=== PATIENT | female | born 1995 | race Caucasian/White ===

== ENCOUNTER 2016-11-16 21:08 | Emergency (ER) | payer BC ==
[~2016-11-16] VITALS: Ht 154.9 cm; Wt 82.0 kg
[~2016-11-16 21:08] MED LIST: AZIT500T2 PO; IBUP800T23 PO; RANI150T PO
[2016-11-16 21:10] VITALS: BP 153/90; PULSE 97; RESP 16; TEMP 98.8; O2SAT 98
[2016-11-16 22:22] VITALS: BP 142/76; PULSE 80; RESP 18; O2SAT 98
[2016-11-16] MEDS ORDERED: diphenhydrAMINE HCL 50 MG/ML VIAL IVP ONE (22:45)
[2016-11-16] MEDS ORDERED: FAMOTIDINE 20 MG/2 ML VIAL IV PUSH ONE (22:45)
[2016-11-16] MEDS ORDERED: SODIUM CHLORIDE 0.9% FLUSH 5 ML FLUSH IVF PRN (22:45)
[2016-11-16] MEDS ORDERED: methylPREDNISolone SOD SUCC 125 MG/2 ML VIAL IVP ONE (22:45)
[2016-11-17] MEDS ORDERED: SODIUM CHLORIDE 0.9% FLUSH 5 ML FLUSH IVF PRN (00:15)
[2016-11-17] MEDS ORDERED: EPINEPHrine HCL (1:1000) 1 MG/ML VIAL IM ONE (00:15)
--- NOTE | 2016-11-17 00:19 | PD ---
HPI Chief Complaint: Allergic/Adverse Reaction Time Seen by Provider: 22:44 Travel History International Travel<30 days: No Contact w/Intl Traveler<30days: No Traveled to known affect area: No History of Present Illness HPI 21 year-old female presents to the emergency department by private transportation the care of her significant other for allergic reaction. Patient is noted upper lip and facial swelling as well as left sided tongue swelling. Patient denies any difficulty with swallowing or breathing. Patient denies any chest pain or wheezing. Patient's had no near-syncope or syncope. No nausea no vomiting no diarrhea or abdominal cramping. Patient denies urticaria or skin rash. Patient states symptoms began around 6 PM after drinking a new peach flavored beverage around 5:30 PM. Patient states since that time around 7:30 she did take a one-time dose of Benadryl but symptoms were not improving, decided to come to the emergency room. Patient denies any prior allergic reaction to foods or other substances or known allergens. She has had an adverse reaction to codeine causing GI upset but no true allergy. Patient denies any other new foods beverages makeup lip gloss detergents lotions between linens furniture pet dander or plant exposure or other allergens. Patient rates mouth discomfort as 5/10 intensity. Patient denies any chronic medical conditions besides asthma which does not appear to be affected. LMP: 2 weeks ago and normal for her. PFS Past Medical History Narrative Medical asthma, no tobacco; nursing notes reviewed Cardiovascular Problems: Yes (MURMUR) Diminished Hearing: No Respiratory: Yes (ASTHMA) Immunizations Current: Yes Tetanus Vaccination: Unknown ?: Not LMP: 2 WKS AGO Past Surgical History Abdominal Surgery: Yes (EX LAP) Social History Alcohol Use: Yes (OCCASIONALLY) Tobacco Use: No Substance Use: No Allergies-Medications (Allergen,Severity, Reaction): Coded Allergies: Codeine (Verified Adverse Reaction, Mild, upset stomach, 11/16/16) Reported Meds & Prescriptions Reported Meds & Active Scripts Active Epipen 2-Jose R Inj (Epinephrine) 0.3 Mg/0.3 Ml Pfpen 0.3 Mg IM ONCE PRN Prednisone 50 Mg Tab 50 Mg PO DAILY 4 Days Review of Systems Except as stated in HPI: all other systems reviewed are Neg General / Constitutional: No: Fever, Chills Eyes: No: Visual changes HENT: No: Headaches, Sore Throat, Congestion Cardiovascular: No: Chest Pain or Discomfort, Diaphoresis, Syncope Respiratory: No: Cough, Shortness of Breath, Wheezing, Pleuritic Pain Gastrointestinal: No: Nausea, Vomiting, Diarrhea, Abdominal Pain Genitourinary: No: Dysuria, Flank Pain Musculoskeletal: No: Myalgias, Arthralgias Skin: No Rash, No Hives Psychiatric: Positive: Anxiety Endocrine: No: Heat Intolerance Hematologic/Lymphatic: No: Easy Bruising Physical Exam Narrative GENERAL: Well-developed well-nourished female in no acute distress no respiratory distress no stridor or hoarseness. SKIN: Warm and dry. No rash no urticaria. HEAD: Normocephalic. EYES: No scleral icterus. No injection or drainage. ENT: Airway is patent; no visible tongue edema; right side of upper lip with focal area of edema. NECK: Supple, trachea midline. No JVD or lymphadenopathy. CARDIOVASCULAR: Regular rate and rhythm without murmurs, gallops, or rubs. RESPIRATORY: Breath sounds equal bilaterally. No accessory muscle use. GASTROINTESTINAL: Abdomen soft, non-tender, nondistended. MUSCULOSKELETAL: No cyanosis, or edema. BACK: Nontender without obvious deformity. No CVA tenderness. Data Data Last Documented VS Vital Signs Date Time Temp Pulse Resp B/P Pulse Ox O2 Delivery O2 Flow Rate FiO2 11/17/16 01:11 82 18 135/61 97 11/16/16 22:22 Room Air 11/16/16 21:10 98.8 Orders Ecg Monitoring (11/16/16 22:45) Iv Access Insert/Monitor (11/16/16 22:45) Oximetry (11/16/16 22:45) Diphenhydramine Inj (Benadryl Inj) (11/16/16 22:45) Methylprednisolone So Succ Inj (Solumedr (11/16/16 22:45) Famotidine Inj (Pepcid Inj) (11/16/16 22:45) Sodium Chloride 0.9% Flush (Ns Flush) (11/16/16 22:45) Sodium Chloride 0.9% Flush (Ns Flush) (11/17/16 00:15) Epinephrine (1:1000) Inj (Adrenalin (1:1 (11/17/16 00:15) MDM Medical Decision Making Medical Screen Exam Complete: Yes Emergency Medical Condition: Yes Medical Record Reviewed: Yes Differential Diagnosis Acute allergic reaction, angioedema, anaphylaxis Narrative Course Patient placed on threat monitoring analyst IV access obtained Solu-Medrol 125 mg IV administered Benadryl 25 mg IV administered and Pepcid 20 mg IV administered Patient reassessed and patient denies any sensation of tongue swelling continues to have persistent right-sided upper lip swelling epinephrine 1:1000 0.3 cc administered IM At 12:53 AM patient is clinically improved and stable for outpatient management Diagnosis Primary Impression: Acute allergic reaction Qualified Code: T78.40XA - Acute allergic reaction, initial encounter Referrals: Primary Care Physician call for appointment Patient Instructions: General Instructions Departure Forms: Tests/Procedures, Work Release Special Instructions: No work times one day Additional Instructions: Increase fluid hydration; avoid ingredients in the beach beverage and avoid the beach beverage from earlier this evening as possible allergen Avoid overheating Take [id number] Pepcid per package directions daily for 7 days Take Benadryl 25-50 mg as often as every 4-6 hours as needed for allergic reaction symptoms Complete course of prednisone/steroid as prescribed Use EpiPen as prescribed as needed No work times one day Return to the emergency department for any concerns or change in condition Med/Other Pt SpecificInfo: Prescription(s) given Scripts Epinephrine Inj (Epipen 2-Jose R Inj)0.3 Mg/0.3 Ml Pfpen0.3 Mg IM ONCE PRN ( ALLERGIC REACTION) #1 PACK Ref 1 Prov:Hilda Lee MD 11/17/16 Prednisone 50 Mg Tab50 Mg PO DAILY 4 Days Ref 0 Prov:Hilda Lee MD 11/17/16 Disposition: DISCHARGE HOME Condition: Stable Hilda Lee MD Nov 17, 2016 00:19
[2016-11-17] MEDS ORDERED: EPIP0.3I IM (00:52)
[2016-11-17] MEDS ORDERED: PRED50 PO (00:52)
[2016-11-17 01:11] VITALS: BP 135/61
== END 2016-11-17 01:14 | disposition home or self-care (01) ==
LOC: NEPC 21:08
DX: T78.40XA Allergy, unspecified, initial encounter (principal); Z87.09 Personal history of other diseases of the respiratory system; Z86.79 Personal history of other diseases of the circulatory system
CPT/HCPCS: 96372; 96374; 96375; 99283; J0171; J1200; J2930

== ENCOUNTER 2017-03-10 12:30 | Emergency (ER) | payer SELFPAY ==
[~2017-03-10] VITALS: Ht 154.9 cm; Wt 80.0 kg
[~2017-03-10 12:30] MED LIST changes: -AZIT500T2 PO; +EPIP0.3I IM; -IBUP800T23 PO; +PRED50 PO; -RANI150T PO
[2017-03-10 12:32] VITALS: BP 137/82; PULSE 102; RESP 20; TEMP 98.3; O2SAT 100
[2017-03-10] MEDS ORDERED: predniSONE 50 MG TAB PO ONE (12:45)
--- NOTE | 2017-03-10 12:47 | PD ---
HPI Chief Complaint: Cold / Flu Symptoms Time Seen by Provider: 12:39 Travel History International Travel<30 days: No Contact w/Intl Traveler<30days: No Traveled to known affect area: No History of Present Illness HPI This is a 22-year-old female who presents to the emergency department with difficulty breathing for 2 days, constant, moderate severity feeling tightness in her right chest, with a nonproductive cough and some discomfort in her right neck and throat area. She says she's felt very hot hasn't checked her temperature. She denies any vomiting or diarrhea. She denies any sore throat or rhinorrhea. PFSH Past Medical History Cardiovascular Problems: Yes (MURMUR) Diminished Hearing: No Respiratory: Yes (ASTHMA) Immunizations Current: Yes ?: Not Past Surgical History Abdominal Surgery: Yes (EX LAP) Social History Alcohol Use: Yes (OCCASIONALLY) Tobacco Use: No Substance Use: No Allergies-Medications (Allergen,Severity, Reaction): Coded Allergies: Codeine (Verified Adverse Reaction, Mild, upset stomach, 11/16/16) Reported Meds & Prescriptions Reported Meds & Active Scripts Active Epipen 2-Jose R Inj (Epinephrine) 0.3 Mg/0.3 Ml Pfpen 0.3 Mg IM ONCE PRN Prednisone 50 Mg Tab 50 Mg PO DAILY 4 Days Review of Systems Except as stated in HPI: all other systems reviewed are Neg Physical Exam Narrative GENERAL:Well appearing, no acute distress SKIN: Focused skin assessment warm and dry. HEAD: Atraumatic. Normocephalic. EYES: Pupils equal and round. No injection or drainage. ENT: Moist mucous membranes. No posterior pharyngeal erythema or exudates. NECK: Trachea midline. No cervical lymphadenopathy. CARDIOVASCULAR: Regular rate and rhythm. No murmur appreciated. RESPIRATORY: Wheezing in the right upper lung and some Rales in the right lower lung, patient is slightly tachypneic GASTROINTESTINAL: Abdomen soft, non-tender, nondistended. MUSCULOSKELETAL: No obvious deformities. NEUROLOGICAL: Awake and alert. No obvious cranial nerve deficits. Moving all extremities. PSYCHIATRIC: Appropriate mood and affect; insight and judgment normal. Data Data Last Documented VS Vital Signs Date Time Temp Pulse Resp B/P Pulse Ox O2 Delivery O2 Flow Rate FiO2 03/10/17 12:32 98.3 102 20 137/82 100 Room Air Orders Chest, Pa & Lat (03/10/17 ) Prednisone (Deltasone) (03/10/17 12:45) Albuterol-Ipratropium Neb (Duoneb Neb) (03/10/17 12:45) Complete Blood Count With Diff (03/10/17 14:18) Comprehensive Metabolic Panel (03/10/17 14:18) Ct Pulmonary Angiogram (03/10/17 ) Ed Urine Pregnancytest Poc (03/10/17 14:18) Lorazepam (Ativan) (03/10/17 14:45) Iohexol 350 Inj (Omnipaque 350 Inj) (03/10/17 14:57) Labs Laboratory Tests Test 03/10/17 14:28 White Blood Count 11.7 TH/MM3 Red Blood Count 5.03 MIL/MM3 Hemoglobin 13.4 GM/DL Hematocrit 40.8 % Mean Corpuscular Volume 81.2 FL Mean Corpuscular Hemoglobin 26.7 PG Mean Corpuscular Hemoglobin 32.9 % Concent Red Cell Distribution Width 13.9 % Platelet Count 247 TH/MM3 Mean Platelet Volume 8.8 FL Neutrophils (%) (Auto) 81.2 % Lymphocytes (%) (Auto) 11.5 % Monocytes (%) (Auto) 6.1 % Eosinophils (%) (Auto) 0.8 % Basophils (%) (Auto) 0.4 % Neutrophils # (Auto) 9.5 TH/MM3 Lymphocytes # (Auto) 1.3 TH/MM3 Monocytes # (Auto) 0.7 TH/MM3 Eosinophils # (Auto) 0.1 TH/MM3 Basophils # (Auto) 0.0 TH/MM3 CBC Comment DIFF FINAL Differential Comment MDM Medical Decision Making Medical Screen Exam Complete: Yes Emergency Medical Condition: Yes Interpretation(s) Afebrile, mild tachycardia, normotensive Mild leukocytosis 81% neutrophils Last 24 hours Impressions Chest X-Ray 03/10/17 0000 Signed Impressions: Service Date/Time: Friday, March 10, 2017 13:52 - CONCLUSION: Moderate peribronchial thickening without consolidation. Tigre Frank MD FACR CT Angiography 03/10/17 0000 Signed Impressions: Service Date/Time: Friday, March 10, 2017 14:45 - CONCLUSION: 1. No pulmonary embolus identified. 2. Right lower lobe pneumonia. Rogelio Frank MD Differential Diagnosis Pneumonia, pulmonary embolism, bronchitis, pneumothorax Narrative Course This is a 22-year-old female who presents to the emergency department with shortness of breath and cough. She is objectively tachypneic on exam although has a normal oxygen saturation. She has pain in the right lung. She was placed on a monitor and an IV was established. Labs demonstrate a mild leukocytosis. Chest x-ray demonstrated some peribronchial cuffing. I obtained a CT pulmonary angiogram to evaluate for pulmonary embolism versus pneumonia. Patient has evidence of a right lower lobe pneumonia. She will be treated here with a dose of ceftriaxone and azithromycin and will be discharged on Cefdinir and azithromycin as an outpatient, as well as bronchodilators. Diagnosis Primary Impression: Pneumonia Qualified Code: J18.1 - Pneumonia of right lower lobe due to infectious organism Patient Instructions: General Instructions Additional Instructions: If you develop severe shortness of breath, chest pain, or difficulty breathing return to the emergency department. Use albuterol every 4 hours for the next 2 days. Then use as needed for wheezing. Complete your course of steroids. Complete your course of antibiotics. Follow up with your primary care physician in 2-3 days if your symptoms have not improved. Med/Other Pt SpecificInfo: Prescription(s) given Scripts Albuterol 8.5 GM Inh (Proair Hfa 8.5 GM Inh)90 Mcg/Act Aer2 Puff INH Q6H PRN ( SHORTNESS OF BREATH) #1 INHALER Ref 0 108 mcg/actuation Prov:Rachel Osborne MD 03/10/17 Azithromycin (Zithromax Z-Jose R)250 Mg [id number] Mg PO DIRECTED #1 DSPK Ref 0 500 MG (2 tabs) day 1, then 1 tab days 2-5. Prov:Rachel Osborne MD 03/10/17 Cefdinir 300 Mg [id number] Mg PO BID 10 Days Ref 0 Prov:Rachel Osborne MD 03/10/17 Prednisone 20 Mg Tab40 Mg PO DAILY 4 Days Prov:Rachel Osborne MD 03/10/17 Disposition: 01 DISCHARGE HOME Condition: Stable Rachel Osborne MD Mar 10, 2017 12:47
[2017-03-10] MEDS: RESP: ALBUTEROL 2.5 MG/IPRATROPIUM 0.5 MG NEB (SCH) INH ×2 (13:02→13:03)
--- NOTE | 2017-03-10 14:10 | RADRPT ---
EXAM DATE/TIME: 03/10/2017 13:52 [facility] COMPARISON: No previous studies available for comparison. INDICATIONS : Shortness of breath and right side pain. MEDICAL HISTORY : Asthma SURGICAL HISTORY : ENCOUNTER: Initial ACUITY: 3 days PAIN SCORE: 5/10 LOCATION: Right chest FINDINGS: Moderate peribronchial thickening is present without pneumothorax. The heart and pulmonary vasculari ty are normal. The portion of the bony skeleton visualized is unremarkable. CONCLUSION: Moderate peribronchial thickening without consolidation. Tigre Frank MD FACR on March 10, 2017 at 14:08 Board Certified Radiologist. This report was verified electronically.
[2017-03-10] MEDS ORDERED: LORazepam 0.5 MG TAB PO ONE (14:45)
[2017-03-10] MEDS ORDERED: IOHEXOL 350 MG/ML 10 ML VIAL (for RAD DIAG) IV ONE (14:57)
[2017-03-10 15:02] LABS: AUTOMATED NEUTROPHIL # 9.5 TH/MM3 (1.8-7.7); BASOPHIL % 0.4 % (0.0-2.0); EOSINOPHIL # 0.1 TH/MM3 (0-0.4); EOSINOPHIL % 0.8 % (0.0-4.0); HEMATOCRIT 40.8 % (35.0-46.0); HEMO FLAGS DIFF FINAL; LYMPH % 11.5 % (9.0-44.0); LYMPHOCYTE # 1.3 TH/MM3 (1.0-4.8); MEAN CELL VOLUME 81.2 FL (80.0-100.0); MEAN CORPUSCULAR HEMOGLOBIN 26.7 PG (27.0-34.0); MEAN CORPUSCULAR HGB CONC 32.9 % (32.0-36.0); MONO % 6.1 % (0.0-8.0); NEUT % 81.2 % (16.0-70.0); PLATELET COUNT 247 TH/MM3 (150-450); RED BLOOD COUNT 5.03 MIL/MM3 (4.00-5.30); RED CELL DISTRIBUTION WIDTH 13.9 % (11.6-17.2); WHITE BLOOD COUNT 11.7 TH/MM3 (4.0-11.0)
--- NOTE | 2017-03-10 15:03 | RADRPT ---
EXAM DATE/TIME: 03/10/2017 14:45 [facility] COMPARISON: CHEST PA & LAT, March 10, 2017, 13:52. CT SOFT TISSUE NECK W CONTRAST, November 14, 2015, 2:44. INDICATIONS : Difficulty breathing, cough,congestion. IV CONTRAST: 69 cc Omnipaque 350 (iohexol) IV RADIATION DOSE: 23.40 CTDIvol (mGy) MEDICAL HISTORY : Cardiovascular disease. SURGICAL HISTORY : None. ENCOUNTER: Initial ACUITY: 1 day PAIN SCALE: 8/10 LOCATION: Bilateral chest TECHNIQUE: Volumetric scanning of the chest was performed using a pulmonary embolism protocol MIP images were re constructed. Using automated exposure control and adjustment of the mA and/or kV according to patien t size, radiation dose was kept as low as reasonably achievable to obtain optimal diagnostic quality images. DICOM format image data is available electronically for review and comparison. FINDINGS: PULMONARY ARTERIES: No filling defects are seen in the pulmonary arteries through the segmental level. LUNGS: The exam demonstrates diffuse parenchymal infiltrate involving the right lower lobe concerning for a pneumonia. No solid mass lesion is identified. PLEURAE: There is no pleural thickening or pleural effusion. MEDIASTINUM: There is good visualization of the great vessels of the middle mediastinum. No evidence of mediastin al or hilar adenopathy/mass. MUSCULOSKELETAL: Within normal limits for patient age. MISCELLANEOUS: The visualized upper abdominal organs demonstrate no acute abnormality. CONCLUSION: 1. No pulmonary embolus identified. 2. Right lower lobe pneumonia. Rogelio Frank MD on March 10, 2017 at 14:57 Board Certified Radiologist. This report was verified electronically.
[2017-03-10] MEDS ORDERED: CEFD300C PO (15:26)
[2017-03-10] MEDS ORDERED: ALBUAER3 INH (15:26)
[2017-03-10] MEDS ORDERED: ZITHTAB PO (15:26)
[2017-03-10] MEDS ORDERED: PRED20 PO (15:26)
[2017-03-10 15:28] LABS: ALT (GPT) 21 U/L (10-53); ANION GAP 11 MEQ/L (5-15); AST (GOT) 14 U/L (15-37); BICARBONATE 22.4 MEQ/L (21.0-32.0); BLOOD UREA NITROGEN 7 MG/DL (7-18); CHLORIDE 102 MEQ/L (98-107); GLOMERULAR FILTRATION RATE 128 ML/MIN (>89); POTASSIUM 3.4 MEQ/L (3.5-5.1); SODIUM (NA) 135 MEQ/L (136-145)
[2017-03-10 15:30] LABS: ALKALINE PHOSPHATASE 84 U/L (45-117); TOTAL BILIRUBIN ADULT 0.7 MG/DL (0.2-1.0)
== END 2017-03-10 15:45 | disposition home or self-care (01) ==
LOC: NEPD 12:30
DX: J18.1 Lobar pneumonia, unspecified organism (principal); R06.82 Tachypnea, not elsewhere classified; D72.829 Elevated white blood cell count, unspecified; M54.2 Cervicalgia; Z86.79 Personal history of other diseases of the circulatory system; Z87.09 Personal history of other diseases of the respiratory system
CPT/HCPCS: 71020; 71275; 80053; 84703; 85025; 94640; 94664; 99285; J7512; Q9967

== ENCOUNTER 2018-09-15 08:56 | Observation (INO) ==
[2018-09-15] MEDS ORDERED: guaiFENesin/Codeine Syrup 200 MG/20 MG 10 ML UDC PO ONE (09:59)
[2018-09-15] MEDS ORDERED: Dexamethasone Inj 20 MG/5 ML Vial IM ONE (09:59)
--- NOTE | 2018-09-15 10:42 | XR ---
EXAM DATE: 09/15/2018 10:25 AM EST AGE/SEX: 23 years / Female INDICATIONS: Shortness of breath. Cough. CLINICAL DATA: This is the patient's initial encounter. Patient reports that signs and symptoms have been present for 4 - 6 days and indicates a pain score of 0/10. MEDICAL/SURGICAL HISTORY: None. None. COMPARISON: [facility] [place], CHEST PA & LAT, 03/10/2017. . FINDINGS: A single AP view of the chest demonstrates the lungs to be symmetrically aerated without evidence of mass, infiltrate or effusion. The cardiomediastinal contours are unremarkable. Osseous structures a re intact. CONCLUSION: Stable chest without evidence of acute cardiopulmonary process. Electronically signed by: Devante Sparks MD Board Certified Radiologist 09/15/2018 10:41 AM EST
[2018-09-15] MEDS ORDERED: Sod Chloride 0.9% Inj 1,000 ML IV.SIG SCH (11:30)
[2018-09-15] MEDS ORDERED: Morphine Inj 4 MG/ML Vial IV.PUSH ONE (12:00)
[2018-09-15 12:21] LABS: Baso % (Auto) 0.6 % (0.0-2.0); Eos # (Auto) 0.1 th/mm3 (0.0-0.4); Eos % (Auto) 2.1 % (0.0-4.0); Hematocrit 37.1 % (35.0-46.0); Hemoglobin 11.9 gm/dL (11.6-15.3); Lymph # (Auto) 1.7 th/mm3 (1.0-4.8); Lymph % (Auto) 28.1 % (9.0-44.0); Mean Corpuscular Hemoglobin 24.2 pg (27.0-34.0); Mean Corpuscular Volume 75.7 fL (80.0-100.0); Mean Platelet Volume 8.6 fL (7.0-11.0); Mono # (Auto) 0.5 th/mm3 (0.0-0.9); Mono % (Auto) 7.9 % (0.0-8.0); Neut # (Auto) 3.7 th/mm3 (1.8-7.7); Neut % (Auto) 61.3 % (16.0-70.0); Platelet Count 228 th/mm3 (150-450); Red Blood Count 4.91 mil/mm3 (4.00-5.30); Red Cell Distribution Width 17.7 % (11.6-17.2)
[2018-09-15 12:37] LABS: Albumin 3.7 g/dL (3.4-5.0); Anion Gap 14 meq/L (5-15); Aspartate Aminotransferase 17 U/L (15-37); Blood Urea Nitrogen 8 mg/dL (7-18); Calcium 8.7 mg/dL (8.5-10.1); Carbon Dioxide 19.1 meq/L (21.0-32.0); Chloride 106 meq/L (98-107); Glomerular Filtration Rate Greater Than 89 mL/min (>89); Glucose,Random 145 mg/dL (74-106); Sodium 139 meq/L (136-145)
[2018-09-15 12:38] LABS: Alanine Aminotransferase 26 U/L (10-53)
[2018-09-15 12:41] LABS: Alkaline Phosphatase 90 U/L (45-117)
--- NOTE | 2018-09-15 13:33 | ED ---
HPI General Chief Complaint: Respiratory Symptoms Stated Complaint: SOB/resp complaint Time Seen by Provider: 09/15/18 09:48 Source: patient Mode of arrival: ambulatory Limitations: no limitations History of Present Illness HPI Narrative: 23 yo F c/o dyspnea and cough for a few days. chest pain is reported and attributed to frequent severe coughing spells. pt reports dyspnea at rest and worse with exertion. + subjective fever overnight. no hemoptysis. + hx asthma per patient. + flu shot this year. onset gradual. rhinorrhea and nasal congestion reported. no n/v/d. no abdominal sena. Related Data Home Medications Medication Instructions Recorded Confirmed No Known Home Medications 09/15/18 09/15/18 Allergies Allergy/AdvReac Type Severity Reaction Status Date / Time codeine AdvReac Mild upset Unverified 09/15/18 09:05 stomach Review of Systems ROS: all other systems reviewed are negative [facility] Social History Social History Substance History: No History of Abuse Smoking Status: Never smoker How Often Do You Have a Drink Containing Alcohol: Never Recent Travel in [facility] within the Last 8 Weeks: No Recent Out of Country Travel within the Last 8 Weeks: No Immunization History Tetanus Immunization: Unsure Exam Narrative Exam Narrative: GENERAL: 23 yo F, WNWD, anxious, speaking sentences SKIN: Focused skin assessment warm/dry. HEAD: Atraumatic. Normocephalic. EYES: Pupils equal and round. No scleral icterus. No injection or drainage. ENT: No nasal bleeding or discharge. Mucous membranes pink and moist. NECK: Trachea midline. No JVD. CARDIOVASCULAR: Tachycardia. Rate approximately 120. RESPIRATORY: Tachypnea to approx 30 breaths per minute. Minimal wheezing present bilaterally. GASTROINTESTINAL: Abdomen soft, non-tender, nondistended. Hepatic and splenic margins not palpable. MUSCULOSKELETAL: No obvious deformities. No clubbing. No cyanosis. No edema. NEUROLOGICAL: Awake and alert. No obvious cranial nerve deficits. Motor grossly within normal limits. Normal speech. PSYCHIATRIC: Cooperative. Pleasant. Anxious. Course Initial Documented Vital Signs Temperature 98.7 F 09/15/18 09:02 Pulse Rate 102 H 09/15/18 09:02 Respiratory Rate 20 09/15/18 09:02 Blood Pressure 156/76 H 09/15/18 09:02 Pulse Oximetry 100 09/15/18 09:02 Last Documented Vital Signs Temperature 98.7 F 09/15/18 09:02 Pulse Rate 112 H 09/15/18 15:30 Respiratory Rate 18 09/15/18 15:30 Blood Pressure 147/87 H 09/15/18 15:30 Pulse Oximetry 97 09/15/18 15:30 Critical Care Time Critical Care Time: Yes Total Critical Care Time: 60 Attestation: Aggregate critical care time was 60 minutes. Time to perform other separately billable procedures was not included in the critical care time. My time did not include minutes spent treating any other patients simultaneously or on activities that did not directly contribute to the patient's treatment. The services I provided to this patient were to treat and/or prevent clinically significant deterioration that could result in: cardiopulmonary arrest, permanent disability I provided critical care services requiring my management, as noted below: Chart data review, documentation time, medication orders and management, vital sign assessments/reviewing monitor data, ordering and reviewing lab tests, ordering and interpreting/reviewing x-rays and diagnostic studies, care of the patient and discussion of the patient with the admitting physicians. Medical Decision Making MDM Narrative Medical decision making narrative: Pt received duoneb tx here and became tachypneic and reported chest pain. Ativan and IVF started and after two additional reassessments persistent dyspnea and chest discomfort reported with tachypnea at 130, sinus. EKG shows sinus rhythm with rate of 129, right ventricular conduction delay without ST changes c/w ischemia, not preexcitation. CT pulmonary angiogram added. CBC essentially normal K+ 3.0 Bicarb 19.1 Glucose 145 Tn < 0.02 CTPA no PE or pathology otherwise pt tachycardia and tachypneic at 6 hours into ed course after 1L NS, ativan 1mg IV, morphine. ? reaction to decadron and/or guaifenesin with codeine ? subsegmental PE ? anxiety admission for further treatment and diagnostic evaluation d/w Dr Ritchie VÁSQUEZ Medical Screen Exam Complete: Yes Emergency Medical Condition: Yes Lab Data Result diagrams: 09/15/18 12:00 09/15/18 12:00 POC Results POC Urine Results Negative Lab Results 09/15/18 09/15/18 09/15/18 Range/Units 12:00 12:00 12:00 WBC 6.0 (4.0-11.0) th/mm3 RBC 4.91 (4.00-5.30) mil/mm3 Hgb 11.9 (11.6-15.3) gm/dL Hct 37.1 (35.0-46.0) % MCV 75.7 L (80.0-100.0) fL MCH 24.2 L (27.0-34.0) pg MCHC 32.0 (32.0-36.0) % RDW 17.7 H (11.6-17.2) % Plt Count 228 (150-450) th/mm3 MPV 8.6 (7.0-11.0) fL Neut % (Auto) 61.3 (16.0-70.0) % Lymph % (Auto) 28.1 (9.0-44.0) % Barnes % (Auto) 7.9 (0.0-8.0) % Eos % (Auto) 2.1 (0.0-4.0) % Baso % (Auto) 0.6 (0.0-2.0) % Neut # (Auto) 3.7 (1.8-7.7) th/mm3 Lymph # (Auto) 1.7 (1.0-4.8) th/mm3 Barnes # (Auto) 0.5 (0.0-0.9) th/mm3 Eos # (Auto) 0.1 (0.0-0.4) th/mm3 Baso # (Auto) 0.0 (0.0-0.2) th/mm3 WBC Differential . Differential Comment Auto diff final Sodium 139 (136-145) meq/L Potassium 3.0 L (3.5-5.1) meq/L Chloride 106 (98-107) meq/L Carbon Dioxide 19.1 L (21.0-32.0) meq/L Anion Gap 14 (5-15) meq/L BUN 8 (7-18) mg/dL Creatinine 0.59 (0.50-1.00) mg/dL Estimated GFR Greater than 89 (>89) mL/min Random Glucose 145 H (74-106) mg/dL Calcium 8.7 (8.5-10.1) mg/dL Magnesium (1.5-2.5) mg/dL Total Bilirubin 0.4 (0.2-1.0) mg/dL AST 17 (15-37) U/L ALT 26 (10-53) U/L Alkaline Phosphatase 90 (45-117) U/L Troponin I Less than 0.02 L (0.02-0.05) ng/mL Total Protein 8.0 (6.4-8.2) g/dL Albumin 3.7 (3.4-5.0) g/dL Urine Color (Yellw/Straw) Urine Clarity (Clear) Urine pH (5.0-8.5) Ur Specific [place] (1.002-1.035) Urine Protein (Neg-Trace) mg/dL Urine Glucose (UA) (Negative) mg/dL Urine Ketones (Negative) mg/dL Urine Occult Blood (Negative) Urine Nitrate (Negative) Urine Bilirubin (Negative) Urine Urobilinogen (Less than 2) mg/dL Ur Leukocyte Esterase (Negative) Urine RBC (0-3) /hpf Urine WBC (0-5) /hpf Ur Squamous Epith Cells (0-5) /hpf Urine Bacteria (None) /hpf Micro UA Comment Ur Microscopic Review Urine Culture Comments 09/15/18 09/15/18 Range/Units 12:00 13:18 WBC (4.0-11.0) th/mm3 RBC (4.00-5.30) mil/mm3 Hgb (11.6-15.3) gm/dL Hct (35.0-46.0) % MCV (80.0-100.0) fL MCH (27.0-34.0) pg MCHC (32.0-36.0) % RDW (11.6-17.2) % Plt Count (150-450) th/mm3 MPV (7.0-11.0) fL Neut % (Auto) (16.0-70.0) % Lymph % (Auto) (9.0-44.0) % Barnes % (Auto) (0.0-8.0) % Eos % (Auto) (0.0-4.0) % Baso % (Auto) (0.0-2.0) % Neut # (Auto) (1.8-7.7) th/mm3 Lymph # (Auto) (1.0-4.8) th/mm3 Barnes # (Auto) (0.0-0.9) th/mm3 Eos # (Auto) (0.0-0.4) th/mm3 Baso # (Auto) (0.0-0.2) th/mm3 WBC Differential Differential Comment Sodium (136-145) meq/L Potassium (3.5-5.1) meq/L Chloride (98-107) meq/L Carbon Dioxide (21.0-32.0) meq/L Anion Gap (5-15) meq/L BUN (7-18) mg/dL Creatinine (0.50-1.00) mg/dL Estimated GFR (>89) mL/min Random Glucose (74-106) mg/dL Calcium (8.5-10.1) mg/dL Magnesium 1.8 (1.5-2.5) mg/dL Total Bilirubin (0.2-1.0) mg/dL AST (15-37) U/L ALT (10-53) U/L Alkaline Phosphatase (45-117) U/L Troponin I (0.02-0.05) ng/mL Total Protein (6.4-8.2) g/dL Albumin (3.4-5.0) g/dL Urine Color Yellow (Yellw/Straw) Urine Clarity Hazy H (Clear) Urine pH 6.0 (5.0-8.5) Ur Specific [place] 1.029 (1.002-1.035) Urine Protein 30 H (Neg-Trace) mg/dL Urine Glucose (UA) Negative (Negative) mg/dL Urine Ketones Negative (Negative) mg/dL Urine Occult Blood Negative (Negative) Urine Nitrate Negative (Negative) Urine Bilirubin Negative (Negative) Urine Urobilinogen Less than 2 (Less than 2) mg/dL Ur Leukocyte Esterase Small H (Negative) Urine RBC 2 (0-3) /hpf Urine WBC 3 (0-5) /hpf Ur Squamous Epith Cells 3 (0-5) /hpf Urine Bacteria Occasional H (None) /hpf Micro UA Comment Culture not ind Ur Microscopic Review Microscopic reviewed Urine Culture Comments Culture not ind Imaging Data Radiologist's impression: Chest X-Ray 09/15/18 10:00 CONCLUSION: Stable chest without evidence of acute cardiopulmonary process. Chest CTA 09/15/18 12:07 CONCLUSION: This study is negative for pulmonary embolism. No evidence of acute process. Discharge Plan Discharge Disposition Patient Disposition: ED Admit(ED Internal Use Only) Discharge Condition Condition: Stable Discharge Order Discharge Orders: ED Use Only Admit Order (Routine); Ordered 09/15/18 Ordered By: Rogelio Feliz Physicians Team ED Provider: Rogelio Feliz Primary Care Provider: Primary Care Sahra Chauhan Attending Provider: Marcellus Messina Status ED Status: Admitted Observation Patient
[2018-09-15 13:42] LABS: Bacteria,Urine Occasional /hpf; Bilirubin,Urine Negative (Negative); Clarity,Urine Hazy (Clear); Color,Urine Yellow (Yellw/Straw); Glucose,Urine (UA) Negative (Negative); Leukocyte Esterase,Urine Small (Negative); Nitrite,Urine Negative (Negative); Specific Gravity,Urine 1.029 (1.002-1.035); Squamous Epithelial Cell,Urine 3 /hpf (0-5)
--- NOTE | 2018-09-15 14:44 | CT ---
EXAM DATE: 09/15/2018 2:24 PM EST AGE/SEX: 23 years / Female INDICATIONS: Shortness of breath. CLINICAL DATA: This is the patient's initial encounter. Patient reports that signs and symptoms have been present for 1 day and indicates a pain score of 0/10. MEDICAL/SURGICAL HISTORY: None. None. RADIATION DOSE: 10.51 CTDI (mGy) [place] [facility] [place] 03/10/[place]. . TECHNIQUE: Volumetric scanning was performed using a multi-row detector CT scanner during bolus infu yola of 67 ml Omnipaque 350 (iohexol) nonionic water-soluble contrast as a single exam dose. The radha a was post processed with a variety of visualization algorithms including full volume maximum intensi ty projection and sliding thin slab reformation. Using automated exposure control and adjustment of t he mA and/or kV according to patient size, radiation dose was kept as low as reasonably achievable to obtain optimal diagnostic quality images. DICOM format image data is available electronically for r eview and comparison. FINDINGS: Pulmonary Arteries: No filling defects are seen in the pulmonary arteries out to the subsegmental ve ssels. The left and right pulmonary arteries are normal in diameter. Lung: No infiltrates seen. Effusion: None. Mediastinum: No evidence of mediastinal or hilar adenopathy. Other: The axilla is unremarkable. CONCLUSION: This study is negative for pulmonary embolism. No evidence of acute process. Electronically signed by: Devante Sparks MD Board Certified Radiologist 09/15/2018 2:43 PM EST
--- NOTE | 2018-09-15 16:39 | P.HPFP ---
History of Present Illness Primary Care Physician: No Primary Care Physician Chief Complaint: shorthess of breath History of Present Illness: 23-year-old female previously healthy presenting to the ED with complaints of coughing, and shortness of breath. Patient states last week she started feeling a sore throat, her glands were swollen, she was feeling fatigued, with decreased energy levels and unable to get out of bed and do much. Patient sore throat improved but two days before [place] she started feeling nausea, she took Zofran and the nausea went away. Patient is also complaining of decreased sleep. This last couple of days patient has been coughing intensely, and becoming short of breath, the only thing that helps its her albuterol inhaler which gives her about 30 min relief. Today patient is complaining of wheezing, and chest pressure. Patient feels there is somebody sitting on her chest, and has a hard time breathing, patient feels she has to be sitting up in order to breathe better. Patient also states two days ago she had a fever, however did not take her temperature. She also had night sweats last night, no chills. No sick contacts at home, two people sick at work. PMH: pneumonia november 2016, asthma as child, anxiety diagnosed 3 yrs ago, Meds: took bupropion for one year before moving here, 3 years ago. No meds now Allergic: codeine, stomach upset Fmhx: HTN mom, grandparents, aunt, uncle. Dad: pancreatic cancer. Social: Moved from [place], 3 years. Work [employer], lives with boyfriend, two dogs and a cat. family stays in [facility] [place].denies smoking, occasionally marijuana one time a week or less, denies any drug use. Sexually active: no control. Not trying to actively conceive, but would not mind getting . test negative in ED - Diagnosis (1) Shortness of breath (2) Tachycardia (3) Cough (4) Hypertension (5) Anxiety (6) Nutrition, metabolism, and development symptoms (7) DVT prophylaxis Review of Systems Constitutional: Reports fatigue, Reports fever(s), Reports lack of energy, Reports malaise, Reports night sweats Cardiovascular: Reports fast heart rate, Denies chest pain Respiratory: Reports chest congestion, Reports cough, Reports pain on inspiration, Reports shortness of breath, Denies coughing up blood, Denies excessive phlegm production Gastrointestinal: Reports nausea, Denies abdominal pain, Denies change in bowel habits, Denies constipation, Denies vomiting Genitourinary: Denies sexual problems Psychiatric: Reports anxiety PMFSH - History History Provided By: Patient - Medical / Surgical Hx Neg / Unobtainable Surgical History: No Previous Surgery - Family History Family History: Family History (Last Updated 09/15/18 @ 18:01 by Flakita Rocha R1, , R1) Mother Hypertension Grandparent Hypertension Aunt Hypertension Father Pancreatic cancer - Social History I have reviewed the patient's Social History: Yes - Tobacco History Smoking Status: Never smoker - Alcohol History How Often Do You Have a Drink Containing Alcohol: Never - Substance Use History Substance History: No History of Abuse, Active Abuse (Marijuana at least once a week) - Travel History Recent Travel in the [facility] Within the Last 8 Weeks: No Recent Travel Out of the Country Within the Last 8 Weeks: No - Immunization History Tetanus Immunization: Unsure Medications and Allergies Active Medications: Active Medications Sodium Chloride (Ns Flush) 2 ml IV.FLUSH UNSCH PRN PRN Reason: FLUSH AFTER USING IV ACCESS Allergies Allergy/AdvReac Type Severity Reaction Status Date / Time codeine AdvReac Mild Nausea Verified 09/15/18 17:28 Home Medications Medication Instructions Recorded Confirmed Type No Known Home Medications 09/15/18 09/15/18 History Exam Vital signs: Vital Signs 09/15/18 09:02 09/15/18 10:47 09/15/18 10:55 Temperature 98.7 F Pulse Rate 102 H 104 H 104 H Respiratory Rate 20 16 24 Blood Pressure 156/76 H Pulse Oximetry 100 09/15/18 11:15 09/15/18 11:30 09/15/18 12:39 Temperature Pulse Rate 104 H 124 H Respiratory Rate 28 H 18 Blood Pressure 132/61 Pulse Oximetry 97 97 09/15/18 12:57 09/15/18 13:35 09/15/18 14:58 Temperature Pulse Rate 117 H 115 H Respiratory Rate 18 18 Blood Pressure 147/74 H Pulse Oximetry 97 09/15/18 15:29 09/15/18 15:30 Temperature Pulse Rate 112 H Respiratory Rate 18 Blood Pressure 147/87 H Pulse Oximetry 97 97 Intake & Output 09/14/18 09/15/18 09/15/18 18:59 06:59 18:59 Intake Total 1000 / 1000 Balance 1000 / 1000 Weight 81.647 kg Intake: IV 1000 / 1000 NS Inj 1,000 ML @ 1000 mls/hr 1000 / 1000 IV.SIG BOLUS RAEANN Rx#:[id number] Narrative: GENERAL: overweighted female, in NAD, anxious. SKIN: Warm and dry. Blushed chest skin HEAD: Normocephalic and atraumatic. EYES: No scleral icterus. No injection or drainage. ENT: No nasal drainage noted. Mucous membranes pink. Airway patent. CARDIOVASCULAR: Tachycardia. Regular rate and rhythm without murmurs, gallops, or rubs. RESPIRATORY: tachypnea at times during exam. On2L NC, tachypnea increased when trying to wean off oxygen. Breath sounds equal bilaterally. ABDOMEN/GI: Abdomen soft, non-tender, bowel sounds present, no rebound, no guarding EXTREMITIES: No cyanosis or edema. PSYCHIATRY: Anxious demeanor. NEUROLOGICAL: Awake and alert. Motor and sensory grossly within normal limits. Normal speech. Results - Labs Result diagrams: 09/15/18 12:00 09/15/18 12:00 Abnormal lab results 09/15/18 09/15/18 09/15/18 Range/Units 12:00 12:00 12:00 MCV 75.7 L (80.0-100.0) fL MCH 24.2 L (27.0-34.0) pg RDW 17.7 H (11.6-17.2) % Potassium 3.0 L (3.5-5.1) meq/L Carbon Dioxide 19.1 L (21.0-32.0) meq/L Random Glucose 145 H (74-106) mg/dL Troponin I Less than 0.02 L (0.02-0.05) ng/mL Urine Clarity (Clear) Urine Protein (Neg-Trace) mg/dL Ur Leukocyte Esterase (Negative) Urine Bacteria (None) /hpf 09/15/18 Range/Units 13:18 MCV (80.0-100.0) fL MCH (27.0-34.0) pg RDW (11.6-17.2) % Potassium (3.5-5.1) meq/L Carbon Dioxide (21.0-32.0) meq/L Random Glucose (74-106) mg/dL Troponin I (0.02-0.05) ng/mL Urine Clarity Hazy H (Clear) Urine Protein 30 H (Neg-Trace) mg/dL Ur Leukocyte Esterase Small H (Negative) Urine Bacteria Occasional H (None) /hpf Short CBC 09/15/18 Range/Units 12:00 WBC 6.0 (4.0-11.0) th/mm3 Hgb 11.9 (11.6-15.3) gm/dL Hct 37.1 (35.0-46.0) % Plt Count 228 (150-450) th/mm3 BMP 09/15/18 12:00 Sodium 139 Potassium 3.0 L Chloride 106 Carbon Dioxide 19.1 L BUN 8 Creatinine 0.59 Calcium 8.7 Cardiac Enzymes 09/15/18 Range/Units 12:00 Troponin I Less than 0.02 L (0.02-0.05) ng/mL Liver Function 09/15/18 Range/Units 12:00 Total Bilirubin 0.4 (0.2-1.0) mg/dL AST 17 (15-37) U/L ALT 26 (10-53) U/L Alkaline Phosphatase 90 (45-117) U/L Albumin 3.7 (3.4-5.0) g/dL Urine 09/15/18 Range/Units 13:18 Urine Color Yellow (Yellw/Straw) Urine Clarity Hazy H (Clear) Urine pH 6.0 (5.0-8.5) Ur Specific [place] 1.029 (1.002-1.035) Urine Protein 30 H (Neg-Trace) mg/dL Urine Glucose (UA) Negative (Negative) mg/dL - Imaging Impressions Chest X-Ray 09/15/18 10:00 CONCLUSION: Stable chest without evidence of acute cardiopulmonary process. Chest CTA 09/15/18 12:07 CONCLUSION: This study is negative for pulmonary embolism. No evidence of acute process. Caprini VTE Risk Assessment Caprini VTE Risk Assessment: No/Low Risk (score <= 1) Caprini Risk Assessment Model: Point Value = 1 Point Value = 2 Point Value = 3 Point Value = 5 Age 41-60 Minor surgery BMI > 25 kg/m2 Swollen legs Varicose veins or History of unexplained or recurrent spontaneous Oral contraceptives or hormone replacement Sepsis (< 1 month) Serious lung disease, including pneumonia (< 1 month) Abnormal pulmonary function Acute myocardial infarction Congestive heart failure (< 1 month) History of inflammatory bowel disease Medical patient at bed rest Age 61-74 Arthroscopic surgery Major open surgery (> 45 min) Laparoscopic surgery (> 45 min) Malignancy Confined to bed (> 72 hours) Immobilizing plaster cast Central venous access Age >= 75 History of VTE Family history of VTE Factor V Leiden Prothrombin [id number] Lupus anticoagulant Anticardiolipin antibodies Elevated serum homocysteine Heparin-induced thrombocytopenia Other congenital or acquired thrombophilia Stroke (< 1 month) Elective arthroplasty Hip, pelvis, or leg fracture Acute spinal cord injury (< 1 month) Prophylaxis Regimen: Total Risk Factor Score Risk Level Prophylaxis Regimen 0-1 Low Early ambulation 2 Moderate Order ONE of the following: *Sequential Compression Device (SCD) *Heparin 5000 units SQ BID 3-4 Higher Order ONE of the following medications: *Heparin 5000 units SQ TID *Enoxaparin/Lovenox 40 mg SQ daily (WT < 150 kg, CrCl > 30 mL/min) *Enoxaparin/Lovenox 30 mg SQ daily (WT < 150 kg, CrCl > 10-29 mL/min) *Enoxaparin/Lovenox 30 mg SQ BID (WT < 150 kg, CrCl > 30 mL/min) AND/OR *Sequential Compression Device (SCD) 5 or more Highest Order ONE of the following medications: *Heparin 5000 units SQ TID (Preferred with Epidurals) *Enoxaparin/Lovenox 40 mg SQ daily (WT < 150 kg, CrCl > 30 mL/min) *Enoxaparin/Lovenox 30 mg SQ daily (WT < 150 kg, CrCl > 10-29 mL/min) *Enoxaparin/Lovenox 30 mg SQ BID (WT < 150 kg, CrCl > 30 mL/min) AND *Sequential Compression Device (SCD) Assessment and Plan - Assessment (1) Shortness of breath Code(s): R06.02 - Shortness of breath Status: Acute (2) Tachycardia Code(s): R00.0 - Tachycardia, unspecified Status: Acute (3) Cough Code(s): R05 - Cough Status: Acute (4) Hypertension Code(s): I10 - Essential (primary) hypertension Status: Acute (5) Anxiety Code(s): F41.9 - Anxiety disorder, unspecified Status: Chronic (6) Nutrition, metabolism, and development symptoms Code(s): R63.8 - Other symptoms and signs concerning food and fluid intake Status: Acute (7) DVT prophylaxis Status: Acute - Assessment and Plan 23-year-old female with past medical history of anxiety, on childhood asthma, presented to the ED with a 2-week history of malaise, exacerbated this week with cough and shortness of breath. She was found to be tachypneic on the ED respiratory rate of 20, hypertensive with a blood pressure 156/76, and tachycardic with a rate of 102. While in ED patient got a shortness of breath workup, including an EKG with tachycardia and negative troponins. A CTA that was negative for PE. In several breathing treatments that exacerbated her tachycardia and made her anxious. Patient also receive 1 mg of Ativan IV. Patient labs are significant for low potassium of 3.0 a low bicarb of 19.1. Patient will be admitted to observation due to shortness of breath with chest pressure as well as tachycardia. Shortness of breath Patient respiratory rate in the 30s, not improve with respiratory treatments Bicarb of 19.1 CTA negative for PE Troponin negative x1, EKG negative x1 -Repeat troponins x2 with EKGs -Continue pulse ox and titrate oxygen as needed - BPN pending We will consider albuterol treatment if indicated, noted in made patient more tachycardic -Incentive spirometry Tachycardia Heart rate ranging from 102-124 today No history of cardiac issues Not resolved after 1 mg of Ativan IV, as thought it was produced by anxiety PE negative, chest x-ray negative - UDS pending - TSH, free T4 pending - We will consider ordering an Echo in the morning after reassessing - Start metoprolol 25mg qday Cough -Mucinex as needed Tessalon Perles as needed Hypertension Not known history of high blood pressure Blood pressures here of 156/76, 147/74, 147/87 Severe family history of hypertension Might be related to anxiety versus true hypertension Anxiety -Ativan 1 mg IV as needed every 4 hours Pt discussed with Dr. Messina and Dr. Dugan
[2018-09-15] MEDS ORDERED: Acetaminophen 325 MG Tablet PO PRN (17:44)
--- NOTE | 2018-09-15 17:46 | ECG ---
Date Performed: 09/15/2018 Time Performed: 11:41:24 PTAGE: 23 years EKG: SINUS TACHYCARDIA POSSIBLE RIGHT VENTRICULAR CONDUCTION DELAY MINIMAL ST DEPRESSION ABNORMA L RHYTHM ECG INTERPRETATION BASED ON A DEFAULT AGE OF 38 YEARS NO PREVIOUS TRACING DOCTOR: Radhames Moctezuma Interpretating Date/Time 09/15/2018 17:43:58
[2018-09-15 18:25] LABS: Amphetamine Screen,Urine Neg (Neg); Barbiturate Screen,Urine Neg (Neg); Cannabinoid Screen,Urine Pos (Neg); Cocaine Screen,Urine Neg (Neg)
[2018-09-15 18:29] LABS: Opiate Screen,Urine Neg (Neg)
[2018-09-15 19:08] LABS: Mono Screen Neg (Neg)
[2018-09-15] MEDS: Enoxaparin Inj 40 MG/0.4 ML Syringe SQ SCH (19:17)
[2018-09-15 19:24] LABS: Free T4 (Free Thyroxine) 1.05 ng/dL (0.76-1.46); Thyroid Stimulating Hormone 0.621 uIU/mL (0.358-3.740)
[2018-09-15] MEDS: guaiFENesin 600 MG ER Tablet PO SCH (21:00)
[2018-09-15] MEDS: Benzonatate 100 MG Capsule PO PRN (21:00)
--- NOTE | 2018-09-15 22:07 | ECG ---
Date Performed: 09/15/2018 Time Performed: 17:59:07 PTAGE: 23 years EKG: SINUS TACHYCARDIA POSSIBLE LEFT ATRIAL ENLARGEMENT POSSIBLE RIGHT VENTRICULAR CONDUCTION DE LAY POSSIBLE LEFT VENTRICULAR HYPERTROPHY ABNORMAL ECG INTERPRETATION BASED ON A DEFAULT AGE OF 38 YE ARS PREVIOUS TRACING : 09/15/2018 11.41 Since the previous tracing, no significant change not ed DOCTOR: Radhames Moctezuma Interpretating Date/Time 09/15/2018 22:06:42
[2018-09-16] MEDS: Benzonatate 100 MG Capsule PO PRN (05:04)
[2018-09-16 07:16] LABS: Baso % (Auto) 0.2 % (0.0-2.0); Hematocrit 33.9 % (35.0-46.0); Hemoglobin 11.1 gm/dL (11.6-15.3); Lymph # (Auto) 1.9 th/mm3 (1.0-4.8); Lymph % (Auto) 24.2 % (9.0-44.0); Mean Corpuscular HGB Conc 32.7 % (32.0-36.0); Mean Corpuscular Hemoglobin 24.1 pg (27.0-34.0); Mean Corpuscular Volume 73.8 fL (80.0-100.0); Mean Platelet Volume 8.5 fL (7.0-11.0); Mono # (Auto) 0.6 th/mm3 (0.0-0.9); Mono % (Auto) 8.4 % (0.0-8.0); Neut # (Auto) 5.1 th/mm3 (1.8-7.7); Neut % (Auto) 67.2 % (16.0-70.0); Platelet Count 314 th/mm3 (150-450); Red Blood Count 4.59 mil/mm3 (4.00-5.30); Red Cell Distribution Width 17.7 % (11.6-17.2); White Blood Count 7.7 th/mm3 (4.0-11.0)
[2018-09-16 07:31] LABS: Albumin 3.7 g/dL (3.4-5.0); Anion Gap 8 meq/L (5-15); Aspartate Aminotransferase 14 U/L (15-37); Blood Urea Nitrogen 7 mg/dL (7-18); Calcium 8.6 mg/dL (8.5-10.1); Carbon Dioxide 23.2 meq/L (21.0-32.0); Chloride 108 meq/L (98-107); Glomerular Filtration Rate Greater Than 89 mL/min (>89); Glucose,Random 122 mg/dL (74-106); Potassium 3.7 meq/L (3.5-5.1); Sodium 139 meq/L (136-145)
[2018-09-16 07:32] LABS: Alanine Aminotransferase 24 U/L (10-53); Iron 22 mcg/dL (50-170)
[2018-09-16 07:35] LABS: Alkaline Phosphatase 83 U/L (45-117); Ferritin 7 ng/mL (8-252); Total Iron Binding Capacity 444 mcg/dL (250-450); Total Protein 7.9 g/dL (6.4-8.2)
[2018-09-16] MEDS: guaiFENesin 600 MG ER Tablet PO SCH ×2 (08:06→21:02)
--- NOTE | 2018-09-16 08:25 | ECG ---
Date Performed: 09/16/2018 Time Performed: 00:06:49 PTAGE: 23 years EKG: SINUS TACHYCARDIA MINIMAL VOLTAGE CRITERIA FOR LVH, CONSIDER NORMAL VARIANT ABNORMAL RHYTHM ECG PREVIOUS TRACING : 09/15/2018 17.59 Since the previous tracing, no significant change noted DOCTOR: Radhames Moctezuma Interpretating Date/Time 09/16/2018 08:23:59
--- NOTE | 2018-09-16 11:38 | P.PNFP ---
Subjective Interval history: Patient seen and evaluated this morning with the team. Patient states she is feeling slightly better, still continues to feel shortness of breath, increased cough with phlegm production, as well as fast heart rate. Patient denies any fevers or chills. Discussed extensively with patient the fact we had ruled out thyroid disorder, pulmonary embolism, myocardial infarction, pneumonia, and at this point everything has been negative. Discussed with patient the only other reasonable test at this point would be to do an echocardiogram to ruled out pericarditis secondary to viral infection. Patient states she has been having anxiety issues lately, exacerbated in the ED yesterday, but in general she has been having normal days, calm holidays. <Anum CedilloFlakita Tate V - 09/16/18 11:38> Results - Labs Result diagrams: 09/16/18 06:39 09/16/18 06:39 <Marcellus Messina - 09/16/18 14:03> Abnormal lab results 09/15/18 09/15/18 09/16/18 Range/Units 13:18 18:20 00:00 Hgb (11.6-15.3) gm/dL Hct (35.0-46.0) % MCV (80.0-100.0) fL MCH (27.0-34.0) pg RDW (11.6-17.2) % [place] % (Auto) (0.0-8.0) % Chloride (98-107) meq/L Random Glucose (74-106) mg/dL Iron (50-170) mcg/dL % Saturation (20-50) % Ferritin (8-252) ng/mL AST (15-37) U/L Troponin I Less than 0.02 L Less than 0.02 L (0.02-0.05) ng/mL U Cannabinoids Screen Pos H (Neg) 09/16/18 09/16/18 Range/Units 06:39 06:39 Hgb 11.1 L (11.6-15.3) gm/dL Hct 33.9 L (35.0-46.0) % MCV 73.8 L (80.0-100.0) fL MCH 24.1 L (27.0-34.0) pg RDW 17.7 H (11.6-17.2) % [place] % (Auto) 8.4 H (0.0-8.0) % Chloride 108 H (98-107) meq/L Random Glucose 122 H (74-106) mg/dL Iron 22 L (50-170) mcg/dL % Saturation 5.0 L (20-50) % Ferritin 7 L (8-252) ng/mL AST 14 L (15-37) U/L Troponin I (0.02-0.05) ng/mL U Cannabinoids Screen (Neg) Short CBC 09/16/18 Range/Units 06:39 WBC 7.7 (4.0-11.0) th/mm3 Hgb 11.1 L (11.6-15.3) gm/dL Hct 33.9 L (35.0-46.0) % Plt Count 314 D (150-450) th/mm3 BMP 09/16/18 06:39 Sodium 139 Potassium 3.7 Chloride 108 H Carbon Dioxide 23.2 BUN 7 Creatinine 0.57 Calcium 8.6 Cardiac Enzymes 09/15/18 09/16/18 Range/Units 18:20 00:00 Troponin I Less than 0.02 L Less than 0.02 L (0.02-0.05) ng/mL Liver Function 09/16/18 Range/Units 06:39 Total Bilirubin 0.4 (0.2-1.0) mg/dL AST 14 L (15-37) U/L ALT 24 (10-53) U/L Alkaline Phosphatase 83 (45-117) U/L Albumin 3.7 (3.4-5.0) g/dL <Marcellus Messina - 09/16/18 14:03> Abnormal lab results 09/15/18 09/15/18 09/15/18 Range/Units 12:00 12:00 12:00 Hgb (11.6-15.3) gm/dL Hct (35.0-46.0) % MCV 75.7 L (80.0-100.0) fL MCH 24.2 L (27.0-34.0) pg RDW 17.7 H (11.6-17.2) % [place] % (Auto) (0.0-8.0) % Potassium 3.0 L (3.5-5.1) meq/L Chloride (98-107) meq/L Carbon Dioxide 19.1 L (21.0-32.0) meq/L Random Glucose 145 H (74-106) mg/dL Iron (50-170) mcg/dL % Saturation (20-50) % Ferritin (8-252) ng/mL AST (15-37) U/L Troponin I Less than 0.02 L (0.02-0.05) ng/mL Urine Clarity (Clear) Urine Protein (Neg-Trace) mg/dL Ur Leukocyte Esterase (Negative) Urine Bacteria (None) /hpf U Cannabinoids Screen (Neg) 09/15/18 09/15/18 09/15/18 Range/Units 13:18 13:18 18:20 Hgb (11.6-15.3) gm/dL Hct (35.0-46.0) % MCV (80.0-100.0) fL MCH (27.0-34.0) pg RDW (11.6-17.2) % [place] % (Auto) (0.0-8.0) % Potassium (3.5-5.1) meq/L Chloride (98-107) meq/L Carbon Dioxide (21.0-32.0) meq/L Random Glucose (74-106) mg/dL Iron (50-170) mcg/dL % Saturation (20-50) % Ferritin (8-252) ng/mL AST (15-37) U/L Troponin I Less than 0.02 L (0.02-0.05) ng/mL Urine Clarity Hazy H (Clear) Urine Protein 30 H (Neg-Trace) mg/dL Ur Leukocyte Esterase Small H (Negative) Urine Bacteria Occasional H (None) /hpf U Cannabinoids Screen Pos H (Neg) 09/16/18 09/16/18 09/16/18 Range/Units 00:00 06:39 06:39 Hgb 11.1 L (11.6-15.3) gm/dL Hct 33.9 L (35.0-46.0) % MCV 73.8 L (80.0-100.0) fL MCH 24.1 L (27.0-34.0) pg RDW 17.7 H (11.6-17.2) % [place] % (Auto) 8.4 H (0.0-8.0) % Potassium (3.5-5.1) meq/L Chloride 108 H (98-107) meq/L Carbon Dioxide (21.0-32.0) meq/L Random Glucose 122 H (74-106) mg/dL Iron 22 L (50-170) mcg/dL % Saturation 5.0 L (20-50) % Ferritin 7 L (8-252) ng/mL AST 14 L (15-37) U/L Troponin I Less than 0.02 L (0.02-0.05) ng/mL Urine Clarity (Clear) Urine Protein (Neg-Trace) mg/dL Ur Leukocyte Esterase (Negative) Urine Bacteria (None) /hpf U Cannabinoids Screen (Neg) Short CBC 09/15/18 09/16/18 Range/Units 12:00 06:39 WBC 6.0 7.7 (4.0-11.0) th/mm3 Hgb 11.9 11.1 L (11.6-15.3) gm/dL Hct 37.1 33.9 L (35.0-46.0) % Plt Count 228 314 D (150-450) th/mm3 BMP 09/15/18 09/16/18 12:00 06:39 Sodium 139 139 Potassium 3.0 L 3.7 Chloride 106 108 H Carbon Dioxide 19.1 L 23.2 BUN 8 7 Creatinine 0.59 0.57 Calcium 8.7 8.6 Cardiac Enzymes 09/15/18 09/15/18 09/16/18 Range/Units 12:00 18:20 00:00 Troponin I Less than 0.02 L Less than 0.02 L Less than 0.02 L (0.02-0.05) ng/mL Liver Function 09/15/18 09/16/18 Range/Units 12:00 06:39 Total Bilirubin 0.4 0.4 (0.2-1.0) mg/dL AST 17 14 L (15-37) U/L ALT 26 24 (10-53) U/L Alkaline Phosphatase 90 83 (45-117) U/L Albumin 3.7 3.7 (3.4-5.0) g/dL Urine 09/15/18 Range/Units 13:18 Urine Color Yellow (Yellw/Straw) Urine Clarity Hazy H (Clear) Urine pH 6.0 (5.0-8.5) Ur Specific [place] 1.029 (1.002-1.035) Urine Protein 30 H (Neg-Trace) mg/dL Urine Glucose (UA) Negative (Negative) mg/dL <Flakita Rg V - 09/16/18 11:38> - Imaging Impressions Chest CTA 09/15/18 12:07 CONCLUSION: This study is negative for pulmonary embolism. No evidence of acute process. <Marcellus Messina - 09/16/18 14:03> Impressions Chest CTA 09/15/18 12:07 CONCLUSION: This study is negative for pulmonary embolism. No evidence of acute process. <Flakita Rg V - 09/16/18 11:38> Physical Exam Vital signs: Vital Signs 09/15/18 14:58 09/15/18 15:29 09/15/18 15:30 Temperature Pulse Rate 115 H 112 H Respiratory Rate 18 18 Blood Pressure 147/74 H 147/87 H Pulse Oximetry 97 97 97 09/15/18 19:26 09/15/18 23:15 09/15/18 23:37 Temperature 98.5 F 98.2 F Pulse Rate 114 H 100 H Respiratory Rate 20 16 Blood Pressure 134/79 119/68 Pulse Oximetry 99 95 97 09/16/18 03:31 09/16/18 08:00 09/16/18 08:07 Temperature 97.7 F 97.9 F Pulse Rate 91 H 95 H Respiratory Rate 12 16 Blood Pressure 122/64 142/90 H Pulse Oximetry 98 98 99 09/16/18 09:00 09/16/18 12:00 Temperature Pulse Rate 109 H 95 H Respiratory Rate 16 Blood Pressure 143/94 H Pulse Oximetry 100 Intake & Output 09/15/18 09/16/18 09/16/18 18:59 06:59 18:59 Intake Total 1240 / 1240 480 / 480 Balance 1240 / 1240 480 / 480 Weight 89 kg 89.9 kg Intake: IV 1000 / 1000 NS Inj 1,000 ML @ 1000 mls/hr 1000 / 1000 IV.SIG BOLUS RAEANN Rx#:[id number] Oral 240 / 240 480 / 480 Other: # Voids 1 6 Date of Last Bowel Movement 09/15/18 09/15/18 Weight On Admission 89 kg <Marcellus Messina - 09/16/18 14:03> Vital Signs 09/15/18 12:39 09/15/18 12:57 09/15/18 13:35 Temperature Pulse Rate 124 H 117 H Respiratory Rate 18 18 Blood Pressure 132/61 Pulse Oximetry 97 09/15/18 14:58 09/15/18 15:29 09/15/18 15:30 Temperature Pulse Rate 115 H 112 H Respiratory Rate 18 18 Blood Pressure 147/74 H 147/87 H Pulse Oximetry 97 97 97 09/15/18 19:26 09/15/18 23:15 09/15/18 23:37 Temperature 98.5 F 98.2 F Pulse Rate 114 H 100 H Respiratory Rate 20 16 Blood Pressure 134/79 119/68 Pulse Oximetry 99 95 97 09/16/18 03:31 09/16/18 08:00 09/16/18 08:07 Temperature 97.7 F 97.9 F Pulse Rate 91 H 95 H Respiratory Rate 12 16 Blood Pressure 122/64 142/90 H Pulse Oximetry 98 98 99 Intake & Output 09/15/18 09/16/18 09/16/18 18:59 06:59 18:59 Intake Total 1240 / 1240 480 / 480 Balance 1240 / 1240 480 / 480 Weight 89 kg 89.9 kg Intake: IV 1000 / 1000 NS Inj 1,000 ML @ 1000 mls/hr 1000 / 1000 IV.SIG BOLUS RAEANN Rx#:[id number] Oral 240 / 240 480 / 480 Other: # Voids 1 6 Date of Last Bowel Movement 09/15/18 09/15/18 Weight On Admission 89 kg <Flakita Rg V - 09/16/18 11:38> Narrative: GENERAL: overweighted female, in NAD, anxious. SKIN: Warm and dry. Blushed chest skin HEAD: Normocephalic and atraumatic. EYES: No scleral icterus. No injection or drainage. ENT: No nasal drainage noted. Mucous membranes pink. Airway patent. CARDIOVASCULAR: Tachycardia. Regular rate and rhythm without murmurs, gallops, or rubs. RESPIRATORY: tachypnea at times during exam. On RA. Breath sounds equal bilaterally. ABDOMEN/GI: Abdomen soft, non-tender, bowel sounds present, no rebound, no guarding EXTREMITIES: No cyanosis or edema. PSYCHIATRY: Anxious demeanor. NEUROLOGICAL: Awake and alert. Motor and sensory grossly within normal limits. Normal speech. <Flakita Rg V - 09/16/18 11:38> Assessment and Plan - Assessment (1) Shortness of breath Code(s): R06.02 - Shortness of breath Status: Acute (2) Tachycardia Code(s): R00.0 - Tachycardia, unspecified Status: Acute (3) Cough Code(s): R05 - Cough Status: Acute (4) Hypertension Code(s): I10 - Essential (primary) hypertension Status: Acute (5) Anxiety Code(s): F41.9 - Anxiety disorder, unspecified Status: Chronic (6) Nutrition, metabolism, and development symptoms Code(s): R63.8 - Other symptoms and signs concerning food and fluid intake Status: Acute (7) DVT prophylaxis Status: Acute <Marcellus Messina - 09/16/18 14:03> (1) Shortness of breath Code(s): R06.02 - Shortness of breath Status: Acute (2) Tachycardia Code(s): R00.0 - Tachycardia, unspecified Status: Acute (3) Cough Code(s): R05 - Cough Status: Acute (4) Hypertension Code(s): I10 - Essential (primary) hypertension Status: Acute (5) Anxiety Code(s): F41.9 - Anxiety disorder, unspecified Status: Chronic (6) Nutrition, metabolism, and development symptoms Code(s): R63.8 - Other symptoms and signs concerning food and fluid intake Status: Acute (7) DVT prophylaxis Status: Acute <Flakita Rg V - 09/16/18 11:30> - Assessment and Plan 23-year-old female with past medical history of anxiety, on childhood asthma, presented to the ED with a 2-week history of malaise, exacerbated this week with cough and shortness of breath. She was found to be tachypneic on the ED respiratory rate of 20, hypertensive with a blood pressure 156/76, and tachycardic with a rate of 102. While in ED patient got a shortness of breath workup, including an EKG with tachycardia and negative troponins. A CTA that was negative for PE. In several breathing treatments that exacerbated her tachycardia and made her anxious. Patient also receive 1 mg of Ativan IV. Patient labs are significant for low potassium of 3.0 a low bicarb of 19.1. Patient will be admitted to observation due to shortness of breath with chest pressure as well as tachycardia. Shortness of breath Patient respiratory rate in the 30s, not improve with respiratory treatments Bicarb of 19.1 CTA negative for PE Troponin negative x3, EKG negative x3 BMP, and TSH with T3 within normal limits -Continue pulse ox and titrate oxygen as needed -Incentive spirometry Tachycardia Heart rate improved currently on the 90s-100 No history of cardiac issues Not resolved after 1 mg of Ativan IV, as thought it was produced by anxiety PE negative, chest x-ray negative UDS positive for TSH, patient states that she rubs a TSH lotion on her uncles TSH, free T4 negative - Echo this morning - Continue metoprolol 25mg qday Cough -Mucinex as needed Tessalon Perles as needed Hypertension Not known history of high blood pressure Blood pressures improved Severe family history of hypertension Might be related to anxiety versus true hypertension Anxiety -Ativan 1 mg IV as needed every 4 hours Disposition: At this point patient is stable, major life-threatening diseases have been ruled out. However pending differential diagnosis is viral infection versus pericarditis secondary to viral infection. This will be ruled out with an echocardiogram today. Discharge will be based on echocardiogram results. Pt discussed with Dr. Messina and Dr. Dugan <Anum ReyesShameka - 09/16/18 11:38> - Attending Attestation The exam, history, and the medical decision-making described in the above note were completed with the assistance of the resident physician. I reviewed and agree with the findings presented. I attest that I had a [id number] encounter with the patient on the same day, and personally performed and documented my assessment and findings in the medical record. <Marcellus Messina - 09/16/18 14:03>
[2018-09-16 12:51] LABS: Hemoglobin A1c 5.2 % (4.3-6.0)
--- NOTE | 2018-09-16 17:11 | P.PNADD ---
Addendum to Inpatient Note Reason for Addendum: Additional Documentation Additional information: Subjective: Resident team paged regarding patient with increasing anxiety. Resident team went to evaluate patient. Patient reports that the attack had resolved. We discussed the symptoms of anxiety attack and reassured her that all of her test thus far have been negative. Objective: General: Resting comfortably in bed, wet washcloth on forehead Cardiovascular: Regular rate and rhythm, no murmurs appreciated Respiratory: Clear to auscultation bilaterally Assessment and plan: -Reassured patient -Continue Ativan every 4 as needed and Celexa
[2018-09-16] MEDS: Enoxaparin Inj 40 MG/0.4 ML Syringe SQ SCH (18:44)
--- NOTE | 2018-09-16 22:58 | ECG ---
Date Performed: 09/16/2018 Time Performed: 20:44:22 PTAGE: 23 years EKG: Sinus rhythm POSSIBLE RIGHT VENTRICULAR CONDUCTION DELAY MINIMAL VOLTAGE CRITERIA FOR LVH, CONSIDER NORMAL VARIAN T BORDERLINE ECG PREVIOUS TRACING : 09/16/2018 00.06 No significant change from previous tracing noted. DOCTOR: Estuardo Hare Interpretating Date/Time 09/16/2018 22:57:34
[2018-09-17] MEDS: guaiFENesin 600 MG ER Tablet PO SCH (08:47)
--- NOTE | 2018-09-17 11:22 | P.PNFP ---
Subjective Interval history: Patient seen and evaluated this morning. She is watching TV, had just taken a shower. Patient is now having panic attack at this moment, discuss her panic attacks yesterday. This seemed to come out of nowhere, lacks a few minutes and resolved. Discussed with patient the fact that she needs to have a PCP to follow-up her anxiety as an outpatient, we will see her in our clinic as a follow-up from hospital. Discussed new medication for anxiety, as well as any medication for her heart. Discussed the probability of her having pericarditis is low enough that we will feel comfortable sending her home, and follow her up as an outpatient unless symptoms change/intensify. Discussed with her once again that we have rule out pulmonary embolism, heart attack 4 times, thyroid storm, heart failure, electrolyte abnormalities, pneumonia, asthma attack. Patient denies having any shortness of breath at this moment, she continues to have chest pressure, she denies any chest pain. No nausea or vomiting, Results - Labs Result diagrams: 09/16/18 06:39 09/16/18 06:39 Abnormal lab results 09/16/18 Range/Units 20:37 Troponin I Less than 0.02 L (0.02-0.05) ng/mL Cardiac Enzymes 09/16/18 Range/Units 20:37 Troponin I Less than 0.02 L (0.02-0.05) ng/mL Physical Exam Vital signs: Vital Signs 09/16/18 12:00 09/16/18 16:31 09/16/18 20:00 Temperature 98.3 F 98.8 F Pulse Rate 95 H 92 H 76 Respiratory Rate 16 18 Blood Pressure 143/94 H 134/75 135/67 Pulse Oximetry 100 99 98 09/17/18 00:00 09/17/18 04:00 09/17/18 08:00 Temperature 98.4 F 98.4 F 98.1 F Pulse Rate 77 79 75 Respiratory Rate 18 16 16 Blood Pressure 139/78 122/57 L 143/79 H Pulse Oximetry 100 94 L 99 09/17/18 08:44 Temperature Pulse Rate Respiratory Rate Blood Pressure Pulse Oximetry 99 Intake & Output 09/16/18 09/17/18 09/17/18 18:59 06:59 18:59 Intake Total 1600 / 1600 Balance 1600 / 1600 Weight 89.7 kg Intake: Oral 1600 / 1600 Other: # Voids 4 2 Date of Last Bowel Movement 09/16/18 Narrative: GENERAL: overweighted female, in NAD, sitting in bed watching TV on her laptop SKIN: Warm and dry. CARDIOVASCULAR: Regular rate and rhythm without murmurs, gallops, or rubs. RESPIRATORY: Takes shallow breath, even when instructed to take deep breath for exam. On RA. Breath sounds equal bilaterally. No wheezing, rhonchi, rales. ABDOMEN/GI: Abdomen soft, non-tender, bowel sounds present. EXTREMITIES: No cyanosis or edema. PSYCHIATRY: Anxious demeanor. NEUROLOGICAL: Awake and alert. Motor and sensory grossly within normal limits. Normal speech. Assessment and Plan - Assessment (1) Shortness of breath Code(s): R06.02 - Shortness of breath Status: Acute (2) Tachycardia Code(s): R00.0 - Tachycardia, unspecified Status: Resolved (3) Cough Code(s): R05 - Cough Status: Acute (4) Hypertension Code(s): I10 - Essential (primary) hypertension Status: Acute (5) Anxiety Code(s): F41.9 - Anxiety disorder, unspecified Status: Chronic (6) Nutrition, metabolism, and development symptoms Code(s): R63.8 - Other symptoms and signs concerning food and fluid intake Status: Acute (7) DVT prophylaxis Status: Acute - Assessment and Plan 23-year-old female with past medical history of anxiety, on childhood asthma, presented to the ED with a 2-week history of malaise, exacerbated this week with cough and shortness of breath. She was found to be tachypneic on the ED respiratory rate of 20, hypertensive with a blood pressure 156/76, and tachycardic with a rate of 102. While in ED patient got a shortness of breath workup, including an EKG with tachycardia and negative troponins. A CTA that was negative for PE. In several breathing treatments that exacerbated her tachycardia and made her anxious. Patient also receive 1 mg of Ativan IV. Patient labs are significant for low potassium of 3.0 a low bicarb of 19.1. Patient will be admitted to observation due to shortness of breath with chest pressure as well as tachycardia. Shortness of breath Patient respiratory rate in the 30s, not improve with respiratory treatments Bicarb of 19.1 CTA negative for PE and pneumonia Troponin negative x3, EKG negative x3 BMP, and TSH with T3 within normal limits -Continue incentive spirometry Tachycardia-resolved Heart rate improved currently on the 70s since yesterday evening No history of cardiac issues Not resolved after 1 mg of Ativan IV, as thought it was produced by anxiety PE negative, chest x-ray negative UDS positive for TSH, patient states that she rubs a TSH lotion on her uncles TSH, free T4 negative - Echo as an outpatient, if symptoms do not improve within 10 days. - Continue metoprolol 25mg qday until seen by PCP Cough -Mucinex as needed Tessalon Perles as needed Hypertension Not known history of high blood pressure Blood pressures improved Severe family history of hypertension Might be related to anxiety versus true hypertension Anxiety Patient had another panic attack yesterday x2. EKG and troponin were negative. Patient will be discharged on an SSRI, side effects discussed with patient, instructed to find a primary care doctor to follow-up this medication. Patient counseled she will need to take it for 4 weeks minimum before seen in effect. Discussed with patient that bupropion is not an ideal therapy at this moment due to her tachycardia. Patient agreeable to treatment. Understands side effects. Patient also given Xanax prescription 0.5 mg 15 pills in case of acute panic attack. Disposition: At this point patient is stable, major life-threatening diseases have been ruled out. At this point the etiology of her symptoms seem to be related to her anxiety, as well as a URI. Patient was started on new anxiety medication and is to follow-up as an outpatient, if pressure symptoms persist she will follow-up and get an echocardiogram as an outpatient. Referral information given, prescriptions will be handed to patient upon discharge today. Pt discussed with Dr. Messina and Dr. Dugan
--- NOTE | 2018-09-17 12:21 | ECHRPT ---
Indication: Nonrheumatic mitral (valve) prolapse CONCLUSIONS The left ventricular systolic function is normal with an estimated ejection fraction in the range of 55-60%. Wall thickness is normal. Normal left ventricular size. BP: / HR: Rhythm: Sinus MEASUREMENTS (Male / Female) Normal Values Technical Quality:Good 2D ECHO LV Diastolic Diameter PLAX 4.1 cm 4.2 - 5.9 / 3.9 - 5.3 cm LV Systolic Diameter PLAX 3.1 cm IVS Diastolic Thickness 0.8 cm 0.6 - 1.0 / 0.6 - 0.9 cm LVPW Diastolic Thickness 0.8 cm 0.6 - 1.0 / 0.6 - 0.9 cm LV Relative Wall Thickness 0.4 DOPPLER Mitral E Point Velocity 88.8 cm/s Mitral A Point Velocity 83.4 cm/s Mitral E to A Ratio 1.1 FINDINGS LEFT VENTRICLE The left ventricular systolic function is normal with an estimated ejection fraction in the range of 55-60%. Wall thickness is normal. Normal left ventricular size. RIGHT VENTRICLE Normal right ventricular size and systolic function. LEFT ATRIUM The left atrial size is normal. RIGHT ATRIUM The right atrial size is normal. ATRIAL SEPTUM Normal atrial septal thickness without atrial level shunting by limited color doppler interrogation. AORTA The aortic root and proximal ascending aorta are normal in size on limited imaging. MITRAL VALVE Structurally normal mitral valve. No mitral valve stenosis or regurgitation. AORTIC VALVE Trileaflet aortic valve. No aortic valve stenosis or regurgitation. TRICUSPID VALVE Structurally normal tricuspid valve. No tricuspid valve stenosis or regurgitation. PULMONARY VALVE The pulmonary valve is not well visualized. VESSELS The inferior vena cava is normal in size. PERICARDIUM No pericardial effusion. Geovany Hollis MD, FACC (Electronically Signed) Final Date:17 September 2018 12:20
[2018-09-17 15:14] LABS: Hematocrit 35.8 % (35.0-46.0); Hemoglobin 11.7 gm/dL (11.6-15.3); Mean Corpuscular HGB Conc 32.7 % (32.0-36.0); Mean Corpuscular Hemoglobin 24.1 pg (27.0-34.0); Mean Corpuscular Volume 73.7 fL (80.0-100.0); Mean Platelet Volume 8.3 fL (7.0-11.0); Platelet Count 317 th/mm3 (150-450); Red Blood Count 4.86 mil/mm3 (4.00-5.30); Red Cell Distribution Width 17.6 % (11.6-17.2); White Blood Count 8.3 th/mm3 (4.0-11.0)
[2018-09-17 15:36] LABS: Alanine Aminotransferase 23 U/L (10-53); Albumin 3.9 g/dL (3.4-5.0); Anion Gap 9 meq/L (5-15); Aspartate Aminotransferase 12 U/L (15-37); Blood Urea Nitrogen 13 mg/dL (7-18); Calcium 8.4 mg/dL (8.5-10.1); Carbon Dioxide 23.1 meq/L (21.0-32.0); Chloride 108 meq/L (98-107); Glomerular Filtration Rate Greater Than 89 mL/min (>89); Glucose,Random 79 mg/dL (74-106); Potassium 3.8 meq/L (3.5-5.1); Sodium 140 meq/L (136-145)
[2018-09-17 15:39] LABS: Alkaline Phosphatase 84 U/L (45-117)
--- NOTE | 2018-09-19 10:58 | P.DS ---
Date of admission: 09/15/18 15:31 Primary care physician: No Primary Care Physician Brief History from admission: 23-year-old female previously healthy presenting to the ED with complaints of coughing, and shortness of breath. Patient states last week she started feeling a sore throat, her glands were swollen, she was feeling fatigued, with decreased energy levels and unable to get out of bed and do much. Patient sore throat improved but two days before [place] she started feeling nausea, she took Zofran and the nausea went away. Patient is also complaining of decreased sleep. This last couple of days patient has been coughing intensely, and becoming short of breath, the only thing that helps its her albuterol inhaler which gives her about 30 min relief. Today patient is complaining of wheezing, and chest pressure. Patient feels there is somebody sitting on her chest, and has a hard time breathing, patient feels she has to be sitting up in order to breathe better. Patient also states two days ago she had a fever, however did not take her temperature. She also had night sweats last night, no chills. No sick contacts at home, two people sick at work. PMH: pneumonia november 2016, asthma as child, anxiety diagnosed 3 yrs ago, Meds: took bupropion for one year before moving here, 3 years ago. No meds now Allergic: codeine, stomach upset Fmhx: HTN mom, grandparents, aunt, uncle. Dad: pancreatic cancer. Social: Moved from [facility], 3 years. Work [employer], lives with boyfriend, two dogs and a cat. family stays in [facility].denies smoking, occasionally marijuana one time a week or less, denies any drug use. Sexually active: no control. Not trying to actively conceive, but would not mind getting . test negative in ED DS: Diagnosis - Discharge Diagnosis (1) Shortness of breath Status: Acute (2) Tachycardia Status: Resolved (3) Cough Status: Acute (4) Hypertension Status: Acute (5) Anxiety Status: Chronic (6) Nutrition, metabolism, and development symptoms Status: Acute (7) DVT prophylaxis Status: Acute DS: Medications - Discharge Medications Prescriptions: alprazolam [Xanax] 0.5 mg PO BID #15 tab citalopram [Celexa] 20 mg PO DAILY #30 tab metoprolol succinate 25 mg PO DAILY #30 tab DS: Summary - Time Spent with Patient Total time spent providing and/or coordinating discharge services: - Quality: VTE Deep Vein Thrombosis/Pulmonary Embolism Present on Admission: No Results - Impressions ITS Impressions Chest X-Ray 09/15/18 10:00 CONCLUSION: Stable chest without evidence of acute cardiopulmonary process. Chest CTA 09/15/18 12:07 CONCLUSION: This study is negative for pulmonary embolism. No evidence of acute process. Discharge Plan - Discharge Disposition Patient Disposition: 01 Discharge Home - Discharge Condition Condition: Stable - Discharge Order Discharge Orders: Discharge Order (Routine); Ordered 09/17/18 Ordered By: Flakita Rocha R1 - Physicians Team Primary Care Provider: Primary Care Sahra Chauhan Attending Provider: Marcellus Messina
== END 2018-09-17 14:28 | disposition home or self-care (01) ==
LOC: NEPD 08:56 → NEDA 08:56 → NEPGCP 16:28
PROVIDERS: ADMIT Family Medicine; ATTEND Family Medicine
CPT/HCPCS: 71010; 71045; 71275; 80053; 80307; 81001; 82728; 83036; 83520; 83540; 83550; 83735; 83880; 84439; 84443; 84484; 84703; 85025; 85027; 86308; 87275; 87276; 87804; 90471; 90761; 90774; 90775; 90776; 90784; 93005; 93308; 94150; 94640; 94664; 94665; 96361; 96374; 96375; 96376; 99291; C8952; G0378; J1100; J1650; J2060; J2270; J2405; J7030; Q0163; Q9967